=== PATIENT | female | born 1985 | race Caucasian/White ===

== ENCOUNTER 2024-06-01 08:02 | Observation (INO) ==
--- NOTE | 2024-06-01 08:22 | Emergency Department Note ---
HPI - Syncope General Chief Complaint: Syncope Stated Complaint: syncope Time Seen by Provider: 06/01/24 08:09 Source: patient Mode of arrival: walk-in Limitations: no limitations History of Present Illness HPI narrative: This is a 38 year old female patient that presents to the ER with c/o passing out in the shower today and right flank pain for a couple days. Patient states she was taking a shower this morning and woke up in the bottom of the bath tub. Patient denies any fever, chills, chest pain, SOB, abdominal pain, numbness, tingling, weakness or N/V MD complaint: Reports loss of consciousness Onset (ago): minute(s) (30) Prodromal symptoms: Reports none Witnessed: No Injuries sustained associated with event: Reports other (rt eyebrow abrasion) Current symptoms: Reports none Treatments prior to arrival: Reports none Related Data Allergies Allergy/AdvReac Type Severity Reaction Status Date / Time Penicillins Allergy Mild Verified 06/01/24 08:35 Review of Systems Status of ROS 10 or more systems reviewed and unremark able except as noted in history and below Constitutional Denies: fever, chills, change in weight, fatigue, malaise, night sweats or change in sleep pattern Eyes Denies: change in vision, blurry vision, blind spots, light sensitivity or eye discomfort Ears, nose, mouth, and throat Denies: throat pain, neck pain, throat swelling, difficulty swallowing, hoarseness, mouth pain, swelling of lips/tongue or dry mouth Cardiovascular Denies: chest pain, palpitations, edema, swelling of feet/ankles, lightheadedness, shortness of breath with exertion, shortness of breath when lying down or leg pain with exertion Respiratory Denies: shortness of breath, cough, wheezing, stridor, pain on inspiration, change in phlegm color or coughing up blood Gastrointestinal Denies: abdominal pain, nausea, vomiting, coffee grounds in vomit, heartburn, diarrhea, constipation or bloating Genitourinary Denies: painful urination, urinary frequency, urinary urgency, urinary incontinence, blood in urine, difficulty voiding or decreased urine ouput Musculoskeletal Reports: other (rt flank pain); Denies: back pain, neck pain, extremity pain, extremity swelling or joint pain Integumentary/Breast Denies: rash, itching, redness, skin pain, skin tenderness, skin swelling, non-healing lesion, changes in skin color, jaundice or stretch smith Neurological Reports: other (syncope); Denies: headache, numbness in extremities, weakness in extremities, lack of coordination, dizziness, vertigo, behavioral changes, slurred speech, difficulty communicating thoughts or seizure-like activity Psychiatric Denies: anxiety, mood swings, panic attacks, change in sleep pattern, hopelessness, difficulty concentrating, visual hallucinations or auditory hallucinations Endocrine Denies: excessive urination, excessive thirst, fatigue, cold intolerance or excessive sweating Hematologic/Lymphatic Denies: easy bruising, easy bleeding or enlarged lymph nodes Allergic/Immunologic Denies: hives, throat swelling, tongue swelling, facial swelling or wheezing [facility] Medical History (Updated 06/01/24 @ 08:42 by Kim Brand RN) Patient denies medical problems Social History Smoking status: current every day smoker Exam Constitutional: normal general appearance and no apparent distress Vital Signs - 24 hr 06/01/24 08:04 06/01/24 08:04 Temperature 97.7 F Pulse Rate 97 H Respiratory Rate 20 Blood Pressure 111/72 Blood Pressure [or thostatic lying Ri ght Arm] 121/84 Blood Pressure [or thostatic sitting] 107/74 Blood Pressure [or thostatic standing ] 108/76 Pulse Oximetry 100 Oxygen Delivery Me thod Room Air HENMT: normocephalic, head/scalp traumatic (small abrasion rt eyebrow), hearing grossly normal bilaterally, external ears normal, nasal mucous membranes normal, external nose normal, oral mucous membranes normal and oropharynx normal Eyes: PERRL, EOMs intact bilaterally, conjunctivae normal and no scleral i cterus Neck/C-Spine: visual inspection normal, trachea midline, cervical spine nontender, cervical full ROM noted, supple, no meningeal signs and thyroid normal Lymph: no lymphadenopathy noted Chest: inspection of chest normal Respiratory: breath sounds equal bilaterally, normal respiratory effort, clear to auscultation bilaterally, no wheezes, no rales, no retractions, no use of accessory muscles and chest percussion normal Cardiovascular: normal heart rate noted, regular rhythm noted, no gallop, no rub, no murmur, no JVD, no clicks, peripheral pulses 2+ throughout and no additional abnormal heart sounds Gastrointestinal: abdomen normal to inspection, abdomen soft to palpation, nontender to palpation, nontender to percussion, nondistended, normoactive bowel sounds, no hepatosplenomegaly, no masses, no pulsatile mass, no ascites and no hernia Genitourinary: CVA tenderness noted (rt cva tenderness) Back/Pelvis: spine normal to inspection, no thoracic spine tenderness, no lumbar spine tenderness, thoracic spine ROM normal, lumbar spine ROM normal, no paraspinal muscle tenderness noted and straight leg raise negative bilaterally Extremities: normal to inspection, normal to palpation, no tenderness, full ROM, no joint enlargement and no deformity 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 VSS, no s/s of acute distress noted Vital Signs Vital signs: Vital Signs Temperature 97.7 F 06/01/24 08:04 Pulse Rate 97 H 06/01/24 08:04 Respiratory Rate 20 06/01/24 08:04 Blood Pressure 111/72 06/01/24 08:04 Pulse Oximetry 100 06/01/24 08:04 Oxygen Delivery Method Room Air 06/01/24 08:04 Temperature 97.7 F 06/01/24 08:04 Pulse Rate 97 H 06/01/24 08:04 Respiratory Rate 20 06/01/24 08:04 Blood Pressure 121/84 06/01/24 08:04 Pulse Oximetry 100 06/01/24 08:04 Oxygen Delivery Method Room Air 06/01/24 08:04 Discharge Plan Discharge Patient Disposition: Admitted As Observation Condition: Stable Chief Complaint: Syncope Clinical Impression: Syncope, Orthostatic hypotension Print Language: Korean Referrals: Provider,NO PCP [Primary Care Provider] - Time of Disposition: 09:36 MDM - Syncope Differential Diagnosis Differential diagnosis: Likely syncope due to orthostatic hypotension Medical Records Attestation: I reviewed the patient's medical records. Lab Data Attestation: I reviewed the patient's lab results. Labs: Lab Results 06/01/24 Range/Units 08:20 WBC 13.6 H (4.3-9.3) K/uL RBC 4.3 (4.00-5.50) M/uL Hgb 13.1 (12.5-15.8) gm/dL Hct 39.5 (35.9-46.7) % MCV 92.0 (81.0-93.7) fl MCH 30.5 (27.6-32.2) pg MCHC 33.1 (33.1-35.3) g/dl RDW 12.6 (11.4-14.2) % Plt Count 217 (152-353) K/uL MPV 8.6 (6.9-10.8) fl Gran % 78.2 H (47.8-71.3) % Lymph % (Auto) 11.1 L (20.0-43.0) % [place] % (Auto) 9.5 (3.6-9.8) % Eos % (Auto) 0.8 (0.4-2.8) % Baso % (Auto) 0.4 (0.1-0.85) Lymph # (Auto) 1.5 (1.1-3.1) [place] # (Auto) 1.3 (1.1-3.1) Eos # (Auto) 0.1 (0.0-0.2) Baso # (Auto) 0.1 (0.0-0.1) Absolute Gran (auto) 10.6 H (2.3-6.0) Sodium 137 (136-145) mmol/L Potassium 3.3 L (3.6-5.2) mmol/L Chloride 100.0 (98-107) mmol/L Carbon Dioxide 28 (21-32) mmol/L Anion Gap 9.0 (4-14) mEq/L BUN 12 (7-18) mg/dL Creatinine 0.9 (0.6-1.3) mg/dL Estimated GFR 83.4 (>59.9) Glucose 88 (70-110) mg/dL Calcium 9.1 (8.5-10.1) mg/dL Total Bilirubin 1.12 H (0.0-1.0) mg/dL AST 11 L (15-37) U/L ALT 16 L (30-65) U/L Alkaline Phosphatase 64 (50-136) U/L Troponin I High Sens <4.00 L (4.0-60.4) ng/L Total Protein 8.1 (6.4-8.2) g/dL Albumin 4.0 (3.4-5.0) g/dL Imaging Data Imaging ordered: CT scan - abdomen Attestation: I have reviewed the pertinent imaging results. ECG Data Attestation: I have reviewed the pertinent ECG results.
[2024-06-01 08:29] LABS: Basophils #(Absolute) Auto 0.1 (0.0-0.1); Basophils%(Percent) Auto 0.4 (0.1-0.85); Eosinophils#(Absolute)Auto 0.1 (0.0-0.2); Eosinophils%(Percent) Auto 0.8 % (0.4-2.8); Granulocytes % - Auto 78.2 % (47.8-71.3); Granulocytes#(Absolute)- Auto 10.6 (2.3-6.0); Hematocrit 39.5 % (35.9-46.7); Monocytes #(Absolute)- Auto 1.3 (1.1-3.1); Monocytes %(Percent)- Auto 9.5 % (3.6-9.8); Platelet Count 217 K/uL (152-353); White Blood Count 13.6 K/uL (4.3-9.3)
[2024-06-01 08:38] LABS: Carbon Dioxide 28 mmol/L (21-32); Glucose 88 mg/dL (70-110); Potassium 3.3 mmol/L (3.6-5.2); Sodium 137 mmol/L (136-145)
[2024-06-01] MEDS: ONDANSETRON HCL/PF 4 MG/2 ML VIAL INJ STA (08:43)
[2024-06-01] MEDS: 0.9 % SODIUM CHLORIDE 1000 ML 1,000 ML IV STA (08:43)
[2024-06-01] MEDS: POTASSIUM CHLORIDE 20 MEQ TAB.ER.PRT PO ONE (09:30)
[2024-06-01] MEDS ORDERED: bisacodyL 10 MG SUPP.RECT PR PRN (12:05)
[2024-06-01] MEDS ORDERED: MAGNESIUM, ALUMINUM HYDROXIDE 30 ML ORAL.SUSP PO PRN (12:05)
[2024-06-01] MEDS ORDERED: ONDANSETRON HCL/PF 4 MG/2 ML VIAL INJ PRN (12:05)
[2024-06-01] MEDS: 0.9 % SODIUM CHLORIDE 1000 ML 1,000 ML IV SCH (13:17)
[2024-06-01 14:04] LABS: Amphetamine Screen Urine NEG. (NEGATIVE); Cannabinoid Screen Urine NEG. (NEGATIVE); Cocaine Screen Urine NEG. (NEGATIVE); Methadone Screen Urine NEG. (NEGATIVE); Opiate Screen Urine NEG. (NEGATIVE)
[2024-06-01 14:10] LABS: Urine Appearance CLOUDY (CLEAR); Urine Blood NEGATIVE (NEG - TRACE); Urine Color YELLOW (STRAW/YELL.); Urine Urobilinogen Normal (NORMAL)
[2024-06-01 14:11] LABS: Urine Amorphous Sediment Negative (Negative); Urine Yeast Negative (Negative)
--- NOTE | 2024-06-01 15:12 | Internal Medicine H&P ---
Internal Medicine - H&P: HPI History of Present Illness Chief complaint: syncope,orthostatic hypotension Narrative: Pt to ER from home due passing out in shower. Woke in tub with no bleeding. ER work-up with positive orthostats and WBCs. Was not able to provide a U/A. After admission, urine was positive for nitrites and started on Rocephin. IVFs continued. Review of Systems Status of ROS 10 or more systems reviewed and unremark able except as noted in history and below Constitutional Denies: fever, chills, change in weight, fatigue, malaise, night sweats or change in sleep pattern Eyes Denies: change in vision, blurry vision, blind spots, light sensitivity or eye discomfort Ears, nose, mouth, and throat Denies: throat pain, neck pain, throat swelling, difficulty swallowing, hoarseness, mouth pain, swelling of lips/tongue, dry mouth or vertigo Cardiovascular Denies: chest pain, palpitations, edema, swelling of feet/ankles, lightheadedness, shortness of breath with exertion, shortness of breath when lying down or leg pain with exertion Respiratory Denies: shortness of breath, cough, wheezing, stridor, pain on inspiration, change in phlegm color or coughing up blood Gastrointestinal Denies: abdominal pain, nausea, vomiting, coffee grounds in vomit, heartburn, diarrhea, constipation, bloating or difficulty swallowing Genitourinary Denies: painful urination, urinary frequency, urinary urgency, urinary incontinence, blood in urine, difficulty voiding or decreased urine ouput Musculoskeletal Reports: other (rt flank pain); Denies: back pain, neck pain, extremity pain, extremity swelling or joint pain Integumentary/Breast Denies: rash, itching, redness, skin pain, skin tenderness, skin swelling, non-healing lesion, changes in skin color, jaundice or stretch smith Neurological Reports: other (syncope); Denies: headache, numbness in extremities, weakness in extremities, lack of coordination, dizziness, vertigo, behavioral changes, slurred speech, difficulty communicating thoughts or seizure-like activity Psychiatric Denies: anxiety, mood swings, panic attacks, change in sleep pattern, hopelessness, difficulty concentrating, visual hallucinations or auditory hallucinations Endocrine Denies: excessive urination, excessive thirst, fatigue, cold intolerance or excessive sweating Hematologic/Lymphatic Denies: easy bruising, easy bleeding or enlarged lymph nodes Allergic/Immunologic Denies: hives, throat swelling, tongue swelling, facial swelling or wheezing [facility] Medical History (Updated 06/01/24 @ 15:11 by Todd Duffy MD) Patient denies medical problems Social History Smoking status: current every day smoker Problems where you live: no known problems Highest level of school completed/degree received: high school Meds Home Medications and Allergies Allergies Allergy/AdvReac Type Severity Reaction Status Date / Time Penicillins Allergy Mild Verified 06/01/24 08:35 Exam Constitutional: normal general appearance, no apparent distress, average body habitus, no limitations and alert Vital Signs - 24 hr 06/01/24 08:04 06/01/24 08:04 06/01/24 09:00 Temperature 97.7 F Pulse Rate 97 H 88 Pulse Rate [Left] Respiratory Rate 20 Blood Pressure 111/72 110/76 Blood Pressure [Le ft Arm] Blood Pressure [or thostatic lying Ri ght Arm] 121/84 Blood Pressure [or thostatic sitting] 107/74 Blood Pressure [or thostatic standing ] 108/76 Pulse Oximetry 100 Oxygen Delivery [facility] Room Air 06/01/24 09:30 06/01/24 10:00 06/01/24 10:30 Temperature Pulse Rate 86 84 86 Pulse Rate [Left] Respiratory Rate Blood Pressure 109/70 112/78 109/69 Blood Pressure [Le ft Arm] Blood Pressure [or thostatic lying Ri ght Arm] Blood Pressure [or thostatic sitting] Blood Pressure [or thostatic standing ] Pulse [facility]ximetry [facility] 06/01/24 11:00 06/01/24 11:30 06/01/24 11:53 Temperature Pulse Rate 78 88 88 Pulse Rate [Left] Respiratory Rate Blood Pressure 110/68 110/78 110/78 Blood Pressure [Le ft Arm] Blood Pressure [or thostatic lying Ri ght Arm] Blood Pressure [or thostatic sitting] Blood Pressure [or thostatic standing ] Pulse Oximetry [facility] 06/01/24 12:05 06/01/24 13:03 Temperature 98.2 F Pulse Rate Pulse Rate [Left] 67 67 Respiratory Rate 18 18 Blood Pressure Blood Pressure [Le ft Arm] 96/58 Blood Pressure [or thostatic lying Ri ght Arm] Blood Pressure [or thostatic sitting] Blood Pressure [or thostatic standing ] Pulse Oximetry 100 100 Oxygen Delivery Me thod Room Air Room Air HENMT: normocephalic, head/scalp atraumatic and hearing grossly normal bilaterally Eyes: PERRL, EOMs intact bilaterally and conjunctivae normal Neck/C-Spine: visual inspection normal and trachea midline Respiratory: breath sounds equal bilaterally, normal respiratory effort and clear to auscultation bilaterally Cardiovascular: normal heart rate noted, regular rhythm noted and no murmur Gastrointestinal: abdomen soft to palpation, nontender to palpation, nondistended and normoactive bowel sounds Genitourinary: no CVA tenderness Back/Pelvis: thoracic spine ROM normal and lumbar spine ROM normal 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, no focal motor deficit noted, speech normal, coordination normal and no fasciculations noted Psychiatry: mental status grossly normal, oriented x3, thought process normal, cooperative, affect normal, psychomotor activity normal and memory normal Internal Medicine - H&P: Reslt Labs Labs: CBC WBC 13.6 K/uL (4.3-9.3) H 06/01/24 08:20 RBC 4.3 M/uL (4.00-5.50) 06/01/24 08:20 Hgb 13.1 gm/dL (12.5-15.8) 06/01/24 08:20 Hct 39.5 % (35.9-46.7) 06/01/24 08:20 MCV 92.0 fl (81.0-93.7) 06/01/24 08:20 MCH 30.5 pg (27.6-32.2) 06/01/24 08:20 MCHC 33.1 g/dl (33.1-35.3) 06/01/24 08:20 RDW 12.6 % (11.4-14.2) 06/01/24 08:20 Plt Count 217 K/uL (152-353) 06/01/24 08:20 MPV 8.6 fl (6.9-10.8) 06/01/24 08:20 Gran % 78.2 % (47.8-71.3) H 06/01/24 08:20 Lymph % (Auto) 11.1 % (20.0-43.0) L 06/01/24 08:20 [facility] % (Auto) 9.5 % (3.6-9.8) 06/01/24 08:20 Eos % (Auto) 0.8 % (0.4-2.8) 06/01/24 08:20 Baso % (Auto) 0.4 (0.1-0.85) 06/01/24 08:20 Lymph # (Auto) 1.5 (1.1-3.1) 06/01/24 08:20 [facility] # (Auto) 1.3 (1.1-3.1) 06/01/24 08:20 Eos # (Auto) 0.1 (0.0-0.2) 06/01/24 08:20 Baso # (Auto) 0.1 (0.0-0.1) 06/01/24 08:20 Absolute Gran (auto) 10.6 (2.3-6.0) H 06/01/24 08:20 BMP Sodium 137 mmol/L (136-145) 06/01/24 08:20 Potassium 3.3 mmol/L (3.6-5.2) L 06/01/24 08:20 Chloride 100.0 mmol/L (98-107) 06/01/24 08:20 Carbon Dioxide 28 mmol/L (21-32) 06/01/24 08:20 Anion Gap 9.0 mEq/L (4-14) 06/01/24 08:20 BUN 12 mg/dL (7-18) 06/01/24 08:20 Creatinine 0.9 mg/dL (0.6-1.3) 06/01/24 08:20 Estimated GFR 83.4 (>59.9) 06/01/24 08:20 Glucose 88 mg/dL (70-110) 06/01/24 08:20 Calcium 9.1 mg/dL (8.5-10.1) 06/01/24 08:20 Total Bilirubin 1.12 mg/dL (0.0-1.0) H 06/01/24 08:20 AST 11 U/L (15-37) L 06/01/24 08:20 ALT 16 U/L (30-65) L 06/01/24 08:20 Alkaline Phosphatase 64 U/L (50-136) 06/01/24 08:20 Total Protein 8.1 g/dL (6.4-8.2) 06/01/24 08:20 Albumin 4.0 g/dL (3.4-5.0) 06/01/24 08:20 Cardiac Enzymes Troponin I High Sens <4.00 ng/L (4.0-60.4) L 06/01/24 08:20 Liver Function Total Bilirubin 1.12 mg/dL (0.0-1.0) H 06/01/24 08:20 AST 11 U/L (15-37) L 06/01/24 08:20 ALT 16 U/L (30-65) L 06/01/24 08:20 Alkaline Phosphatase 64 U/L (50-136) 06/01/24 08:20 Total Protein 8.1 g/dL (6.4-8.2) 06/01/24 08:20 Albumin 4.0 g/dL (3.4-5.0) 06/01/24 08:20 Urine Urine Color Yellow (STRAW/YELL.) 06/01/24 13:16 Urine Appearance Cloudy (CLEAR) 06/01/24 13:16 Ur Specific [place] 1.030 (1.001-1.035) 06/01/24 13:16 Urine Protein Negative (NEGATIVE) 06/01/24 13:16 Urine Glucose (UA) Normal (NORMAL) 06/01/24 13:16 Urine Ketones Small (NEGATIVE) 06/01/24 13:16 Urine Occult Blood Negative (NEG - TRACE) 06/01/24 13:16 Urine Nitrite Positive (NEGATIVE) 06/01/24 13:16 Urine Bilirubin Negative (NEGATIVE) 06/01/24 13:16 Urine Urobilinogen Normal (NORMAL) 06/01/24 13:16 Ur Leukocyte Esterase Negative (NEGATIVE) 06/01/24 13:16 Assessment and Plan Assessment and Plan (1) Severe sepsis: Assessment and Plan: Tachycardia, leukocytosis, UTI, hypotension. Responding to IVFs. Code(s): A41.9 - Sepsis, unspecified organism; R65.20 - Severe sepsis without septic shock (2) Acute urinary tract infection: Code(s): N39.0 - Urinary tract infection, site not specified (3) Orthostatic hypotension: Assessment and Plan: due to above Code(s): I95.1 - Orthostatic hypotension Plan IV Rocephin x2 doses and likely home on PO meds. IVFs for next 24hrs.
[2024-06-01] MEDS ORDERED: CEFTRIAXONE SODIUM 1 GM VIAL IV SCH (15:30)
[2024-06-01] MEDS: CEFTRIAXONE SODIUM 1 GM in 0.9 % SODIUM CHLORIDE MB+ 50 ML IV SCH (15:39)
[2024-06-01] MEDS: ACETAMINOPHEN 500 MG TABLET PO PRN (15:42)
[2024-06-01] MEDS: TRAMADOL HCL 50 MG TABLET PO PRN (20:51)
[2024-06-02 04:09] VITALS: TEMP 97.8
[2024-06-02 06:02] LABS: Basophils%(Percent) Auto 0.3 (0.1-0.85); Eosinophils#(Absolute)Auto 0.1 (0.0-0.2); Eosinophils%(Percent) Auto 1.8 % (0.4-2.8); Granulocytes % - Auto 59.4 % (47.8-71.3); Granulocytes#(Absolute)- Auto 4.7 (2.3-6.0); Hematocrit 32.5 % (35.9-46.7); Mean Corpuscular Volume 91.9 fl (81.0-93.7); Monocytes #(Absolute)- Auto 0.9 (1.1-3.1); Monocytes %(Percent)- Auto 11.5 % (3.6-9.8); Platelet Count 194 K/uL (152-353); White Blood Count 7.9 K/uL (4.3-9.3)
[2024-06-02 06:18] LABS: Potassium 3.9 mmol/L (3.6-5.2)
--- NOTE | 2024-06-02 07:49 | Discharge Summary ---
DS: Providers Provider Date of admission: 06/01/24 10:06 Primary care physician: NO PCP Provider Admitting clinician: Nurys Mcmahan Attending physician on admission: Todd Duffy Attending physician on discharge: Todd Duffy Discharging clinician: Todd Duffy Anticipated date of discharge: 06/02/24 DS: Diagnosis Discharge Diagnosis (1) Severe sepsis: Assessment and plan: resolved (2) Acute urinary tract infection: Assessment and plan: Cefdinir tomorrow (3) Orthostatic hypotension: Assessment and plan: resolved DS: Summary Hospital Course Hospital Course: 933: Due to patient having a syncopal event with positive orthostatics will admit patient to the hospital for further evaluation and treatment. VSS, no s/s of acute distress noted U/A returned after discharge consistent for UTI. Pt responded well to Rocephin x2 doses and IVFs. Vitals stable on day of discharge and no ambulatory issues. Discharged home in improved, stable condition to start Omnicef on 06/03/24. Status at Discharge Functional status at discharge: independent ambulation Overall status at discharge: patient is back to baseline Time Spent with Patient Time attestation: Total time spent providing and/or coordinating discharge services: Exam Constitutional: normal general appearance, no apparent distress, average body habitus, no limitations and alert Vital Signs - 24 hr 06/01/24 08:04 06/01/24 08:04 06/01/24 09:00 Temperature 97.7 F Pulse Rate 97 H 88 Pulse Rate [Left] Respiratory Rate 20 Blood Pressure 111/72 110/76 Blood Pressure [Le ft Arm] Blood Pressure [or thostatic lying Ri ght Arm] 121/84 Blood Pressure [or thostatic sitting] 107/74 Blood Pressure [or thostatic standing ] 108/76 Pulse Oximetry 100 Oxygen Delivery Me thod Room Air 06/01/24 09:30 06/01/24 10:00 06/01/24 10:30 Temperature Pulse Rate 86 84 86 Pulse Rate [Left] Respiratory Rate Blood Pressure 109/70 112/78 109/69 Blood Pressure [Le ft Arm] Blood Pressure [or thostatic lying Ri ght Arm] Blood Pressure [or thostatic sitting] Blood Pressure [or thostatic standing ] Pulse Oximetry Oxygen Delivery Me thod 06/01/24 11:00 06/01/24 11:30 06/01/24 11:53 Temperature Pulse Rate 78 88 88 Pulse Rate [Left] Respiratory Rate Blood Pressure 110/68 110/78 110/78 Blood Pressure [Le ft Arm] Blood Pressure [or thostatic lying Ri ght Arm] Blood Pressure [or thostatic sitting] Blood Pressure [or thostatic standing ] Pulse Oximetry Oxygen Delivery Me thod 06/01/24 12:05 06/01/24 13:03 06/01/24 16:00 Temperature 98.2 F 100.0 F H Pulse Rate Pulse Rate [Left] 67 67 75 Respiratory Rate 18 18 19 Blood Pressure Blood Pressure [Le ft Arm] 96/58 111/75 Blood Pressure [or thostatic lying Ri ght Arm] Blood Pressure [or thostatic sitting] Blood Pressure [or thostatic standing ] Pulse Oximetry 100 100 100 Oxygen Delivery Me thod Room Air Room Air Room Air 06/01/24 20:00 06/02/24 00:00 06/02/24 04:00 Temperature 98.9 F 99.1 F 97.8 F Pulse Rate Pulse Rate [Left] 89 66 61 Respiratory Rate 19 19 17 Blood Pressure Blood Pressure [Le ft Arm] 110/69 106/62 95/56 Blood Pressure [or thostatic lying Ri ght Arm] Blood Pressure [or thostatic sitting] Blood Pressure [or thostatic standing ] Pulse Oximetry 99 95 98 Oxygen Delivery Me thod Room Air Room Air Room Air HENMT: normocephalic, head/scalp atraumatic, hearing grossly normal bilaterally and external ears normal Eyes: PERRL, EOMs intact bilaterally and conjunctivae normal Neck/C-Spine: visual inspection normal and trachea midline Respiratory: breath sounds equal bilaterally, normal respiratory effort and clear to auscultation bilaterally Cardiovascular: normal heart rate noted, regular rhythm noted and no murmur Gastrointestinal: abdomen soft to palpation, nontender to palpation and nondistended Genitourinary: no CVA tenderness Back/Pelvis: thoracic spine ROM normal and lumbar spine ROM normal Extremities: normal to inspection, normal to palpation and full ROM 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 normal Psychiatry: mental status grossly normal, oriented x3, thought process normal, cooperative, affect normal, psychomotor activity normal and memory normal DS: Data Data Completed and Pending Labs on day of discharge: Labs from last 24 hours 06/02/24 06/01/24 06/01/24 05:32 13:16 08:20 WBC 7.9 13.6 H RBC 3.5 L 4.3 Hgb 11.0 L 13.1 Hct 32.5 L 39.5 MCV 91.9 92.0 MCH 31.0 30.5 MCHC 33.7 33.1 RDW 13.0 12.6 Plt Count 194 217 MPV 9.0 8.6 Gran % 59.4 78.2 H Lymph % (Auto) 27.0 11.1 L [place] % (Auto) 11.5 H 9.5 Eos % (Auto) 1.8 0.8 Baso % (Auto) 0.3 0.4 Lymph # (Auto) 2.1 1.5 [place] # (Auto) 0.9 L 1.3 Eos # (Auto) 0.1 0.1 Baso # (Auto) 0.0 0.1 Absolute Gran (auto) 4.7 10.6 H Sodium 140 137 Potassium 3.9 3.3 L Chloride 107.0 100.0 Carbon Dioxide 27 28 Anion Gap 6.0 9.0 BUN 8 12 Creatinine 0.7 0.9 Estimated GFR 112.8 83.4 Glucose 95 88 Calcium 8.2 L 9.1 Total Bilirubin 0.39 1.12 H AST 13 L 11 L ALT 14 L 16 L Alkaline Phosphatase 48 L 64 Troponin I High Sens <4.00 L Total Protein 6.4 8.1 Albumin 2.9 L 4.0 Urine Color Yellow Urine Appearance Cloudy Ur Specific [place] 1.030 Urine Protein Negative Urine Glucose (UA) Normal Urine Ketones Small Urine Occult Blood Negative Urine Nitrite Positive Urine Bilirubin Negative Urine Urobilinogen Normal Ur Leukocyte Esterase Negative Urine RBC Negative Urine WBC 10 - 25 Ur Epithelial Cells Moderate Amorphous Sediment Negative Urine Bacteria Many Urine Mucus Negative Urine Trichomonas Negative Urine Yeast Negative Fluid pH 5.0 Urine Opiates Screen Neg. Urine Methadone Screen Neg. Barbiturate Screen Neg. Ur Phencyclidine Scrn Neg. Amphetamines Screen Neg. U Benzodiazepines Scrn Neg. Urine Cocaine Screen Neg. U Marijuana (THC) Screen Neg. Discharge Plan Discharge Disposition: Home, Self-Care Condition: Stable Discharge Medications: New cefdinir 300 mg capsule 300 mg PO BID Qty: 6 0RF Discharge Orders: Discharge Order (Routine); Ordered 06/02/24 Ordered By: Todd Duffy Activity: increase activity as tolerated Interventions: MED/SURG & ICU Observation Charge Sheet Last Done: 06/02/24 05:49 Forms: Portal/Health Info Access Inst Follow-Ups: Provider,NO PCP [Primary Care Provider] -
[2024-06-02 08:29] VITALS: BP 107/69; PULSE 80; RESP 19
== END 2024-06-02 10:28 | disposition home or self-care (01) ==
LOC: ED 08:02 → MS 08:02
PROVIDERS: ADMIT Family Medicine; ATTEND Family Medicine